=== PATIENT | born 1975 | race Caucasian/White ===

== ENCOUNTER → 2024-07-26 08:53 | Outpatient (BNVA) | payer OTHER, SELFPAY | PROVIDERS: PCP Nurse Practitioner; Referring Provider Nurse Practitioner; Visit Provider Student in an Organized Health Care Education/Training Program | DX: Z12.11 Encounter for screening for malignant neoplasm of colon (principal) | CPT/HCPCS: 99204 ==

== ENCOUNTER 2024-09-16 10:04 | Day surgery (SDC) | payer OTHER, SELFPAY ==
[2024-09-16 11:39] VITALS: BP 134/62; PULSE 79; RESP 17; TEMP 37; O2SAT 100
[2024-09-16] MEDS: sodium chloride 0.9% 1,000 ML 30 ML IV (11:40)
[2024-09-16 12:02] LABS: OR HCG Qualitative Urine Negative (Negative)
--- NOTE | 2024-09-16 12:56 | ANES.PREANE2 ---
Pre-Anesthetic Assessment Height/Weight: Height 1.63 m Weight 53.07 kg Temp Pulse Resp BP Pulse Ox O2 Del Method 98.6 F 79 17 134/62 100 Room Air 09/16/24 11:39 09/16/24 11:39 09/16/24 11:39 09/16/24 11:39 09/16/24 11:39 09/16/24 11:39 Preop Diagnosis: screening Operation Date: 09/16/24 13:15 Proposed Procedures p Colonoscopy 04983, G0121, Z12.11(Not Applicable) - Po Sarabia MD Familial anesthetic complications: none Was Beta David taken within 24 hours: N/A Was Clonidine taken within 24 hours: N/A Last intake: Intake Last Liquid Date 09/15/24 Last Liquid Time 23:30 Last Solid Date 09/15/24 Last Solid Time 14:00 Social No alcohol and No tobacco vapes daily- nicotine Exam alert, oriented x 3, clear to auscultation bilaterally and regular rate & rhythm Airway Dentition: full History/ROS No significant history except as noted and No significant complaints Pulmonary Asthma CV/HEM None reported None reported Hepatic None reported GI None reported Metabolic None reported Musc/skel None reported Neuropsych Neuropathy and None reported Anesthetic Plan ASA status: 2 Anesthesia: MAC Risk of > 500 ml blood loss (7ml/kg in children): No Medications/Allergies Home Medications Medication Instructions Recorded Confirmed Last Taken Type albuterol sulfate 90 mcg/actuation 2 puff inhalation Q6H PRN 07/26/24 09/16/24 09/12/24 History aerosol inhaler Shortness Of Breath Or Wheezing bupropion HCl 100 mg tablet,12 hr 100 mg PO BID 07/26/24 09/16/24 09/14/24 History sustained-release (Wellbutrin SR) fluticasone 250 mcg-salmeterol 50 1 inh inhalation BID 07/26/24 09/16/24 1 Week Ago History mcg/dose blistr powdr for ~09/09/24 inhalation Allergies Allergy/AdvReac Type Severity Reaction Status Date / Time No Known Allergies Allergy Unverified 07/26/24 08:56 PFSH Anesthesia Social History Smoking and tobacco/nicotine status: former use of tobacco/nicotine Data Anesthesia Cardiac Studies: No Data to Display
--- NOTE | 2024-09-16 13:08 | W.PM.OPSFHP ---
Same Day Surgery H&P Indication for Procedure/HPI DATE OF PROCEDURE: September 16, 2024 CHIEF COMPLAINT/INDICATIONFOR SURGICAL PROCEDURE: screening colonoscopy PREOP DIAGNOSIS: screening PLANNED PROCEDURE: Operation Date: 09/16/24 13:15 Proposed Procedures p Colonoscopy 06762, G0121, Z12.11(Not Applicable) - Po Sarabia MD Medications/Allergies* Home Medications Medication Instructions Recorded Confirmed Type albuterol sulfate 90 mcg/actuation 2 puff inhalation Q6H PRN 07/26/24 09/16/24 History aerosol inhaler Shortness Of Breath Or Wheezing bupropion HCl 100 mg tablet,12 hr 100 mg PO BID 07/26/24 09/16/24 History sustained-release (Wellbutrin SR) fluticasone 250 mcg-salmeterol 50 1 inh inhalation BID 07/26/24 09/16/24 History mcg/dose blistr powdr for inhalation Allergies/Adverse Reactions Allergy/AdvReac Type Severity Reaction Status Date / Time No Known Allergies Allergy Unverified 07/26/24 08:56 Pertinent History/Comorbid Conditions* Social History Smoking and tobacco/nicotine status: former use of tobacco/nicotine Pertinent Exam Findings alert, oriented x 3, clear to auscultation bilaterally, regular rate & rhythm and procedure specific exam findings Abdomen soft, nt, nd Recommendations Surgery/Procedure today Coding Level of Care Code Acute Code for Chg Fwd
[2024-09-16 13:28] VITALS: BP 124/100; PULSE 86; RESP 16; TEMP 36.1; O2SAT 100
[2024-09-16 13:41] VITALS: BP 130/92; PULSE 83; RESP 16; O2SAT 100
[2024-09-16 13:50] VITALS: BP 128/90; PULSE 80; RESP 18; O2SAT 100
--- NOTE | 2024-09-16 13:55 | ANE.PACU2 ---
Inpatient post-anesthesia follow up: Airway intact: Yes Vital signs: Temperature 97.0 F Pulse Rate 80 Respiratory Rate 18 Blood Pressure 128/90 Pulse Oximetry 100 Oxygen Delivery Me thod Room Air Oxygen Flow Rate Fraction of Inspir ed Oxygen Hydration adequate: Yes Nausea and vomiting: No Pain level: 1 Mental status: Baseline
== END 2024-09-16 13:55 | disposition home or self-care (01) ==
PROVIDERS: Student in an Organized Health Care Education/Training Program; PCP Nurse Practitioner; Visit Provider Student in an Organized Health Care Education/Training Program
PROC: 0DJD8ZZ Inspection of Lower Intestinal Tract, Via Natural or Artificial Opening Endoscopic (ICD-10-PCS; CPT 45378; principal; 2024-09-16 13:15)
DX: Z12.11 Encounter for screening for malignant neoplasm of colon (principal); Z87.891 Personal history of nicotine dependence; J45.909 Unspecified asthma, uncomplicated
CPT/HCPCS: 45378; 81025; J2704; J7030

== ENCOUNTER 2024-09-17 07:21 | Outpatient (CLI) | payer OTHER, SELFPAY ==
--- NOTE | 2024-09-17 07:47 | MM_ITS ---
WS: [id number] BILATERAL 3D TOMOSYNTHESIS DIGITAL SCREENING MAMMOGRAPHY WITH CAD CLINICAL INFORMATION: SCREENING HISTORY: Screening mammogram. No current complaints. COMPARISON: Baseline TECHNIQUE: Bilateral CC and MLO views. FINDINGS: The breasts are composed of heterogeneous fibroglandular density tissue, which can limit the detectio n of small underlying mass lesions. No suspicious mass, asymmetry, calcifications, or architectural d istortion. No evidence of malignancy. Vascular calcification. MM/MM [facility] tomosynthesis [id number] IMPRESSION: DENSITY: The breasts are heterogeneously dense, which may obscure small masses. BI-RADS: 2 - Benign FOLLOW UP: 1 Year Follow-up Recommend return to annual screening mammography.
== END 2024-09-17 07:22 | disposition home or self-care (01) ==
LOC: RAD 07:22
PROVIDERS: PCP Nurse Practitioner; Visit Provider Nurse Practitioner
DX: Z12.31 Encounter for screening mammogram for malignant neoplasm of breast (principal); R92.333 Mammographic heterogeneous density, bilateral breasts; R92.1 Mammographic calcification found on diagnostic imaging of breast
CPT/HCPCS: 77063; 77067